=== PATIENT | male | born 1985 | race Caucasian/White ===

== ENCOUNTER 2018-09-25 06:37 | Emergency (ER) | payer SELFPAY ==
[2018-09-25 06:39] VITALS: BP 108/83; PULSE 60; RESP 18; TEMP 36.4; O2SAT 100; BMI 32.3
--- NOTE | 2018-09-25 06:47 | CT_ITS ---
STUDY: CT ABDOMEN AND PELVIS WITHOUT CONTRAST REASON FOR EXAM: Male, 33 years old. Right flank pain RADIATION DOSAGE (If Supplied By Facility): CTDIvol = ( 7.76 ) mGy, DLP = ( 403.31 ) mGycm TECHNIQUE: Transaxial images were obtained from the dome of the diaphragm to the symphysis pubis without oral contrast, and without intravenous contrast. Sagittal and coronal images were reconstructed. Individualized dose optimization techniques were used for this CT. COMPARISON: None. FINDINGS: The lung bases are clear. The liver is normal. No dilated intrahepatic biliary radicles. The gallbladder is normal with no calcifications within it. There is no pericholecystic fluid collection or streakiness The spleen is normal. The pancreas is normal. Both adrenals are normal. There is a right-sided hydroureteronephrosis secondary to an obstructing 4.8 mm calculus in the distal end of the right ureter. The left kidney is normal. The stomach is normal. There is no bowel distention, acute appendicitis or diverticulitis. No constricting lesions are seen in large bowel. The abdominal wall is intact with no hernias. There is no ascites or any free intraperitoneal air. No indication of epiploic appendagitis The vascular structures in the retroperitoneum are normal. There is no retrocrural, retroperitoneal or mesenteric adenopathy. The bones and joints are normal. The urinary bladder is normal.--The prostate is normal. There is no inguinal or pelvic adenopathy. There is no inguinal hernia. . CT/Abdomen/Pelvis without Cont IMPRESSION: A right-sided hydroureteronephrosis secondary to an obstructing 4.8 mm calculus in the distal right ureter. No acute appendicitis or diverticulitis Electronically Signed: Scott Kaplan MD at 7:40 EDT Tel , Service support ,
[2018-09-25] MEDS: Morphine 4 MG/ML Syringe IV (06:57)
[2018-09-25] MEDS: Ondansetron 4 MG/2 ML Vial IV (06:57)
[2018-09-25] MEDS: Ketorolac 30 MG/ML Syringe IV (06:57)
[2018-09-25] MEDS: 0.9% Normal Saline 1,000 ML 250 ML IV (06:57)
[2018-09-25 07:08] LABS: Absolute Lymphocyte Count 1.47 X10^3/ul (0.83-4.51); Absolute Neutrophil Count 4.8 X10^3/uL (2.0-7.7); Basophil# 0.02 X10^3/uL; Basophil% 0.3 % (0-1); Eosinophil# 0.04 X10^3/uL; Eosinophils% 0.6 % (0-5); Hematocrit 45.1 % (40-54); Hemoglobin 15.4 g/dl (13.0-16.5); Lymphocyte # 1.47 X10^3/ul (4.0); Mean Corp Hgb Conc 34.1 g/gl (32-36); Mean Corpuscular Hgb 29.2 pg (27.0-32.0); Mean Corpuscular Volume 85.4 fL (80-94); Mean Platelet Vol. 9.2 fl (6.2-12.0); Monocyte# 0.63 X10^3/uL; Neutrophil # 4.81 X10^3/uL (2.7-7.7); Neutrophil % 68.8 % (47-70); Platelet Count 216 K/mm3 (150-450); RBC Distribution Width SD 40.2 fl (35.1-43.9); Red Blood Count 5.28 M/mm3 (4.6-6.2)
[2018-09-25 07:09] LABS: Bacteria 0 SEEN /hpf (None Seen); Mucous, Urine 0 SEEN /hpf (<or=2+); White Blood Cells 0 SEEN /hpf (0-5)
[2018-09-25 07:10] LABS: POSITIVE COUNT NO; POSITIVE DIFFERENTIAL NO; POSITIVE MORPHOLOGY NO
[2018-09-25 07:16] LABS: Anion Gap 11 (5-15); BUN 25 mg/dL (7-18); BUN/Creat Ratio 26.2 RATIO (10-20); Calcium,Total 8.9 mg/dL (8.5-10.1); Chloride 104 mmol/L (98-107); Creatinine, Serum 0.95 mg/dL (0.70-1.30); EST Glomerular Filtration Rate 95 mL/min (>60); Est Glom Filt Rate - Afr Amer 115 mL/min (>60); Estimated Creatinine Clearance 97.94 ml/min; Glucose 124 mg/dL (74-106); Potassium 3.7 mmol/L (3.5-5.1); Sodium Level 141 mmol/L (136-145)
[2018-09-25 07:20] LABS: Color, Urine Yellow (Yellow); Glucose, Dipstick Normal (Normal); Ketone-Dipstick 50 mg/dl (Negative); Leukocyte Esterase-Dipstick Negative /ul (Negative); Nitrite-Dipstick Negative (Negative); Occult Blood-Urine 250 /ul (Negative); Protein-Dipstick 15 mg/dl (Negative); Specific Gravity, Urine 1.025 (1.002-1.030); Urine Bilirubin Dipstick Negative (Negative); Urine Clarity Clear (Clear); Urine Urobilinogen Normal (Normal)
[2018-09-25 07:27] LABS: Red Blood Cells-Urine 25-50 SEEN /hpf (0-5); Squamous Epithelial Cells - UA 0-5 SEEN /hpf (0-5)
--- NOTE | 2018-09-25 08:06 | ED.VISSUMM ---
- ER Visit Summary Date of Service: 09/25/18 Chief Complaint: Right flank pain History of Present Illness: The patient is a 33 M who woke this morning with right flank pain radiating to his testicles. He vomited 3 times. He is a history of 2 prior kidney stones and was able to pass both without requiring surgery. Physical Examination: Vital signs unremarkable. Patient is pacing at bedside. Head neck examination unremarkable. Heart is regular rate and rhythm. Lung sounds are clear. Abdomen is soft with no reproducible tenderness. Back examination does reveal right CVA Test Results: CBC and chemistry studies are grossly unremarkable. Urinalysis is significant for blood but no sign of infection. CT flank reveals right-sided hydroureteral nephrosis secondary to an obstructing 4.8 mm calculus in the distal right ureter. Emergency Department Course and Treatment: Patient was treated morphine, Zofran, Toradol, and IV fluids. On repeat evaluation is resting comfortably. He will be treated with Percocet, Toradol, Zofran, and Flomax. He is referred to Dr. Gilman for follow-up if not improving within the next 48 hours. Treatment Plan: [] Disposition: Discharge Impression: Right-sided ureterolithiasis This note was generated with [employer] dictation software. It may contain incorrect words, spelling, and punctuation that were not noted in review of the chart prior to signing ED Disposition - Plan for ED Patient: Referrals: Care Physician,No Primary [Primary Care Provider] -
--- NOTE | 2018-09-25 08:07 | ED.DEP ---
ED Disposition - Plan for ED Patient: Disposition: Home or Assisted Living Instructions: ED Stone Renal W Colic Prescriptions: Oxycodone HCl/Acetaminophen [Percocet 5/325] 1 tablet PO Q6H PRN PRN 3 Days #12 tablet PRN Reason: Pain Ondansetron [Zofran Odt] 4 mg PO Q8H PRN PRN #10 tablet PRN Reason: Nausea Tamsulosin HCl [Flomax] 0.4 mg PO DAILY #7 capsule Ketorolac [Toradol] 10 mg PO Q6H PRN #14 tablet PRN Reason: Pain Referrals: Chino Gilman MD [STAFF PHYSICIAN] - 3-5 Days if not improving
[2018-09-25 08:18] VITALS: BP 110/74; PULSE 81; RESP 18; O2SAT 99
== END 2018-09-25 08:19 | disposition home or self-care (01) ==
PROVIDERS: Emergency Provider Emergency Medicine
DX: N13.2 Hydronephrosis with renal and ureteral calculous obstruction (principal); Z87.442 Personal history of urinary calculi
CPT/HCPCS: 74176; 80048; 81001; 85025; 96361; 96374; 96375; 99283; J7030; A4216; J2405

== ENCOUNTER 2018-09-27 07:33 | Emergency (ER) | payer SELFPAY ==
[2018-09-27 07:35] VITALS: BP 140/73; PULSE 57; RESP 17; TEMP 36.9; O2SAT 100; BMI 32.3
[2018-09-27 08:04] LABS: Mucous, Urine 0 SEEN /hpf (<or=2+); White Blood Cells 0 SEEN /hpf (0-5)
[2018-09-27] MEDS: 0.9% Normal Saline 1,000 ML 1000 ML IV (08:05)
[2018-09-27] MEDS: Ketorolac 30 MG/ML Syringe IV (08:05)
[2018-09-27] MEDS: Ondansetron 4 MG/2 ML Vial IV (08:05)
[2018-09-27 08:06] LABS: Color, Urine Yellow (Yellow); Glucose, Dipstick Normal (Normal); Ketone-Dipstick Negative (Negative); Leukocyte Esterase-Dipstick Negative /ul (Negative); Nitrite-Dipstick Negative (Negative); Occult Blood-Urine 150 /ul (Negative); Protein-Dipstick Negative (Negative); Urine Bilirubin Dipstick Negative (Negative); Urine Clarity Sl. Cloudy (Clear); Urine Urobilinogen Normal (Normal)
--- NOTE | 2018-09-27 08:08 | ED.VISSUMM ---
- ER Visit Summary Date of Service: 09/27/18 Chief Complaint: Flank pain History of Present Illness: The patient is a 33 M with right sided flank pain. He was seen here 2 days ago, and diagnosed with a right distal ureter stone measuring 4.8 mm. He was treated with morphine and Toradol and started on Flomax. He has not followed up with urology. He said the pain had recurred overnight. It is in the same location. Associated with decreased urination and no other symptoms. No significant medical or surgical history. Physical Examination: Vital signs unremarkable. Afebrile. Nontoxic and in no acute distress. Alert and oriented. Right flank tender to palpation. No CVA tenderness. No guarding or rebound. No other pertinent findings. Test Results: Urinalysis and labs pending. Emergency Department Course and Treatment: Patient treated with fluids, Toradol, Zofran. Will repeat labs and urinalysis. Will reassess the patient and discuss with Dr. Gilman. CBC stable. BUN 22, stable, creatinine increased to 1.44. Urinalysis unremarkable. On reevaluation, patient's pain is 2 out of 10. I suggested that he could go home and follow-up with Dr. Gilman. He did not feel comfortable going home because of pain. I discussed this with Dr. Gilman, and he advised that the patient can follow-up with him as an outpatient. He did not advise admission despite his continued pain. He recommended continued treatment with Percocet. He may also take Toradol. Patient was advised of the plan. He will be discharged to follow-up with Dr. Gilman. Treatment Plan: As above Disposition: Discharge Impression: 1. Right ureteral colic This note was generated with [employer] dictation software. It may contain incorrect words, spelling, and punctuation that were not noted in review of the chart prior to signing ED Disposition - Plan for ED Patient: Referrals: Care Physician,No Primary [Primary Care Provider] -
[2018-09-27 08:18] LABS: Absolute Lymphocyte Count 0.86 X10^3/ul (0.83-4.51); Absolute Neutrophil Count 5.6 X10^3/uL (2.0-7.7); Basophil# 0.01 X10^3/uL; Basophil% 0.1 % (0-1); Eosinophil# 0.03 X10^3/uL; Eosinophils% 0.4 % (0-5); Hematocrit 37.9 % (40-54); Hemoglobin 13.1 g/dl (13.0-16.5); Lymphocyte # 0.86 X10^3/ul (4.0); Lymphocyte % 11.2 % (19-41); Mean Corp Hgb Conc 34.6 g/gl (32-36); Mean Corpuscular Hgb 29.7 pg (27.0-32.0); Mean Corpuscular Volume 85.9 fL (80-94); Mean Platelet Vol. 9.1 fl (6.2-12.0); Monocyte% 15.6 % (0-10); Neutrophil # 5.58 X10^3/uL (2.7-7.7); Neutrophil % 72.6 % (47-70); Platelet Count 176 K/mm3 (150-450); RBC Distribution Width CV 13.1 % (11.6-14.6); RBC Distribution Width SD 41.4 fl (35.1-43.9); Red Blood Count 4.41 M/mm3 (4.6-6.2); White Blood Count 7.7 K/mm3 (4.4-11.0)
[2018-09-27 08:18] LABS: Bacteria RARE /hpf (None Seen); Red Blood Cells-Urine 5-10 SEEN /hpf (0-5); Squamous Epithelial Cells - UA 0-5 SEEN /hpf (0-5)
[2018-09-27 08:21] LABS: POSITIVE COUNT NO; POSITIVE DIFFERENTIAL NO; POSITIVE MORPHOLOGY NO
[2018-09-27 08:23] LABS: Anion Gap 5 (5-15); BUN 22 mg/dL (7-18); BUN/Creat Ratio 15.3 RATIO (10-20); Calcium,Total 8.4 mg/dL (8.5-10.1); Chloride 106 mmol/L (98-107); Creatinine, Serum 1.44 mg/dL (0.70-1.30); EST Glomerular Filtration Rate 59 mL/min (>60); Est Glom Filt Rate - Afr Amer 72 mL/min (>60); Estimated Creatinine Clearance 64.61 ml/min; Glucose 87 mg/dL (74-106); Potassium 4.4 mmol/L (3.5-5.1); Sodium Level 139 mmol/L (136-145)
--- NOTE | 2018-09-27 08:55 | ED.DEP ---
ED Disposition - Plan for ED Patient: Instructions: ED Stone Renal W Colic Prescriptions: Oxycodone HCl/Acetaminophen [Percocet 5/325] 1 tab PO Q6H PRN PRN 3 Days #12 tab PRN Reason: Pain Referrals: Chino Gilman MD [STAFF PHYSICIAN] -
[2018-09-27 09:15] VITALS: BP 108/74; PULSE 62; RESP 15; O2SAT 98
== END 2018-09-27 09:19 | disposition home or self-care (01) ==
PROVIDERS: Emergency Provider Emergency Medicine
DX: N23 Unspecified renal colic (principal)
CPT/HCPCS: 80048; 81001; 85025; 96361; 96374; 96375; 99283; J7030; A4216; J2405